=== PATIENT | female | born 1935 | race Caucasian/White ===

== ENCOUNTER 2019-02-20 18:02 | Observation (INO) ==
[2019-02-20] MEDS ORDERED: ASPIRIN PO ONE (18:26)
--- NOTE | 2019-02-20 18:31 | EKG Report ---
Test Performed on : 02/20/2019 6:21:13 PM Test Reason : cp Blood Pressure : / mmHG Vent. Rate : 064 BPM Atrial Rate : 064 BPM P-R Int : 144 ms QRS Dur : 076 ms QT Int : 396 ms P-R-T Axes : 003 007 052 degrees QTc Int : 408 ms Normal sinus rhythm. Low voltage QRS Borderline ECG When compared with ECG of 02-MAY-2017 21:38, No significant change was found Confirmed by Rigo Zafar MD ([id number]), video effects editor Nicol Alatorre ([id number]) on 02/24/2019 1:55:26 PM
[2019-02-20 19:05] LABS: BASO# 0.09 X1000 (0.0-0.2); BASO% 0.6 % (0.0-0.8); EOS# 0.04 X1000 (0.0-0.7); EOS% 0.3 % (0.0-10.0); HEMATOCRIT 36.9 % (37.0-47.0); HEMOGLOBIN 12.8 g/dL (12.0-16.0); IMM GRAN% 5.1 % (0.0-0.5); LYMPH# 3.23 X1000 (1.2-3.4); LYMPH% 20.4 % (20.5-51.1); MCH 29.2 PG (27-31); MCHC 34.7 g/dL (33-37); MCV 84.1 FL (81-99); MONO# 5.89 X1000 (0.11-0.59); MONO% 37.3 % (1.7-9.3); MPV 13.1 FL (7.4-10.4); NEUT# 5.75 X1000 (1.4-6.5); NEUT% 36.3 % (42.2-75.2); PLT 279 X1000 (130-400); RBC 4.39 XMIL (4.2-5.4); RDW 18.5 % (11.5-14.5)
[2019-02-20 19:13] LABS: AGAP 12; ALBUMIN 4.7 g/dL (3.5-5.0); ALKALINE PHOSPHATASE 53 U/L (32-104); BUN 14 mg/dL (8-22); CALCIUM 9.2 mg/dL (8.8-10.2); CHLORIDE 98 mmol/L (98-107); CK PROFILE 19 U/L (24-173); COSMO 275; CREATININE 0.7 mg/dL (0.5-0.9); ESTIMATED GFR > 60; GLUCOSE 106 mg/dL (70-104); GOT 20 U/L (10-30); GPT 9 U/L (10-36); POTASSIUM 4.5 mmol/L (3.5-5.1); SODIUM 137 mmol/L (136-145); TCO2 27 mmol/L (25-35)
[2019-02-20 19:20] LABS: BANDS 4 % (0-1); LYMPHS 27 % (21-51); MONO 33 % (1-9); MYELOCYTES 2 %; SEGS 34 % (42-75)
--- NOTE | 2019-02-20 19:20 | ED EKG INTERP ---
This chart was entered by Olamide Rios Scribe, acting as scribe for Leta Sanchez MD. EKG Interpretation - EKG Time of EKG reading by physician:: 18:21 EKG Read and Signed by:: Leta Sanchez EKG Interpretation (*Must complete 3 of following elements*): Normal (Borderline) Rate: 64 Rhythm: NSR [place]: normal QRS: other (low voltage QRS) [place] Interval: normal ST Wave: normal Attestation - Physician/ WOLFGANG Attestation Patient care was provided by Advanced Practice Provider:: Yes Advanced Practice Provider documentation review:: The Mid-level provider documentation, treatment plan and medical decision making was reviewed by the physician who agrees with all treatment and medical decision making by the MLP. The physician spent face to face time with patient:: Yes Advanced Practice Provider documentation review:: Supervising physician onsite and consulted in the evaluation and care of this patient. The physician did have a face to face encounter with the patient. This chart was documented by the indicated scribe, (Olamide Rios Scribe) and accurately reflects the services I performed and decisions made by me, Leta Sanchez MD, as attested by the provider's signature.
[2019-02-20 19:22] LABS: INR 1.07; PROTIME 14.4 Seconds (11.0-16.0)
--- NOTE | 2019-02-20 19:29 | Diag Imaging Result Doc PS360 ---
EXAM: CHEST-2 VIEWS 02/20/2019 HISTORY: cp TECHNIQUE: PA and lateral chest COMMENT: There is increased interstitial markings which may be indicative of fibrosis as there has been no significant change since 11/11/2016. The heart size and pulmonary vascularity are within normal limits. IMPRESSION: Stable chest. Electronically signed by Sami Franklin 02/20/2019 7:27 PM
--- NOTE | 2019-02-20 20:01 | PROVIDER DOCUMENTATION ---
HPI-General Adult - General Chief Complaint: Dizziness Stated Complaint: CHEST PAIN / SOB Time Seen by Provider: 02/20/19 19:44 Source: patient Allergies/Adverse Reactions: Patient Allergies Allergy/AdvReac Type Severity Reaction Status Date / Time cephalexin monohydrate * Allergy Unknown Verified 05/10/18 18:23 [From Keflex] codeine Allergy Unknown Verified 05/10/18 18:23 cyclobenzaprine HCl * Allergy Unknown Verified 05/10/18 18:23 [From Flexeril] divalproex sodium Allergy Unknown Verified 05/10/18 18:23 [From Depakote] estrogens, conjugated Allergy Unknown Verified 05/10/18 18:23 [From Premarin] meperidine HCl * Allergy Unknown Verified 05/10/18 18:23 [From Demerol] naproxen Allergy Unknown Verified 05/10/18 18:23 pentazocine lactate * Allergy Unknown Verified 05/10/18 18:23 [From Talwin] procaine HCl * Allergy Unknown Verified 05/10/18 18:23 [From Novocain] propoxyphene napsylate * Allergy Unknown Verified 05/10/18 18:23 [From Darvocet-N] Sulfa (Sulfonamide Allergy Unknown Verified 05/10/18 18:23 Antibiotics) trazodone Allergy Unknown Verified 05/10/18 18:23 Home Medications: Home Medication List Medication Instructions Recorded Confirmed Last Taken Type Timolol 0.5% Oph Solution 1 drop BOTH EYES DAILY 06/02/16 05/02/17 Unknown History [Timoptic 0.5% Oph Solution] Ascorbic Acid [Vitamin C] 1,000 mg PO DAILY 05/02/17 05/02/17 05/02/17 History Biotin 1,000 mg PO DAILY 05/02/17 05/02/17 05/02/17 History Furosemide 20 mg PO DAILY 05/02/17 05/02/17 05/02/17 History Meclizine HCl [Antivert] 25 mg PO DAILY 05/02/17 05/02/17 05/02/17 History Meloxicam 15 mg PO DAILY 05/02/17 05/02/17 05/02/17 History Pravastatin Sodium 10 mg PO DAILY 05/02/17 05/02/17 05/02/17 History Timolol 0.5% Oph Solution 6.8 mg BOTH EYES 05/02/17 05/02/17 History [Timoptic 0.5% Oph Solution] Vitamin E 400 units PO DAILY 05/02/17 05/02/17 05/02/17 History - History of Present Illness -Gen Adult Nature of Presenting Problems: Patient is a 83 year old white female with history of recurrent vertigo, s yncope, who presents for evaluation of syncopal episode yesterday and associated dizziness when standing. patient lives alone and has difficulty ambulating for many months due to poor balance. Followed by Dr. Chauhan in [place]. patient also reports intermittent chest discomfort for many months w hich is now gone. Here with her daughter from [facility] who wants her checked out before she takes her mother to [place]. patient is currently asymptomatic except for intermittent dizziness. Review of Systems - Adult - REVIEW OF SYSTEMS - ADULT Constitutional: denies: chills, fever Eyes: reports: no symptoms reported Ears, Nose, Mouth & Throat: reports: see HPI Cardiovascular: reports: chest pain (intermittent, now gone) Respiratory: denies: shortness of breath Gastrointestinal: denies: abdominal pain, nausea, vomiting Genitourinary: denies: dysuria Musculoskeletal: reports: no symptoms reported Integumentary: denies: rash Neurological: reports: headache/migraines (occipital headache due to fall yesterday) Endocrine: reports: no symptoms reported Hematologic/Lymphatic: reports: no symptoms reported Allergic/Immunologic: reports: no symptoms reported All Other Systems: Reviewed and Negative Past History - Adult - PAST MEDICAL HISTORY-ADULT Review of Records: reports: Old Records Reviewed, Nursing Assessment Review, Medications Reviewed, Social history reviewed & non-contributory. Major Childhood Illnesses: reports: denies history Respiratory: reports: asthma - PRIOR SURGERIES/PROCEDURES Surgical/Procedure History: reports: , other (bladder tack ) - IMMUNIZATION STATUS Childhood Immunizations: See Nurse Assessment Flu Vaccine: See Nurse Assessment Physical Exam-General - CONSTITUTIONAL General Appearance: alert, no apparent distress, other (nondiaphoretic) - EYES Eyes: PERRL/EOMI, other (notable horizontal nystagmus) - HEAD, EARS, NOSE, MOUTH & THROAT HENMT: normocephalic/atraumatic, moist mucous membranes - NECK Neck: non-tender, full range of motion, supple - RESPIRATORY Respiratory: lungs clear - CARDIOVASCULAR Cardiovascular: regular rate, rhythm - GASTROINTESTINAL (ABDOMEN) Abdominal Exam: normal bowel sounds, non tender, soft - LYMPHATIC Lymphatic: no adenopathy - MUSCULOSKELETAL Back Exam: normal inspection, no CVA tenderness Extremity: normal range of motion, non-tender Peripheral Pulses: radial (R): 2+, radial (L): 2+ - SKIN Integumentary: normal color, normal turgor, warm/dry - NEUROLOGIC Neurologic: grossly normal, no motor/sensory deficits - PSYCHIATRIC Psych/Mental Status: anxious Progress - PLAN OF CARE/RESULTS Progress/Plan/Lab Results: Vital Signs - 8 hr 02/20/19 18:06 Temperature 98.4 F Pulse Rate 64 Respiratory Rate 18 Blood Pressure 110/63 O2 Sat by Pulse Oximetry 97 Laboratory Results - last 24 hr 02/20/19 02/20/19 02/20/19 18:35 18:35 18:35 WBC 15.80 H RBC 4.39 Hgb 12.8 Hct 36.9 L MCV 84.1 MCH 29.2 MCHC 34.7 RDW Std Deviation 18.5 H Plt Count 279 MPV 13.1 H Immature Gran % (Auto) 5.1 H Neut % (Auto) 36.3 L Lymph % (Auto) 20.4 L Wallace % (Auto) 37.3 H Eos % (Auto) 0.3 Baso % (Auto) 0.6 Immature Gran # (Auto) 0.80 H Neut # (Auto) 5.75 Lymph # (Auto) 3.23 Wallace # (Auto) 5.89 H Eos # (Auto) 0.04 Baso # (Auto) 0.09 Segmented Neutrophils 34 L Band Neutrophils 4 H Lymphocytes 27 Monocytes 33 H Myelocytes 2 Pathologist Review PT INR PTT (Actin FS) Sodium 137 Potassium 4.5 Chloride 98 Carbon Dioxide 27 Anion Gap 12 BUN 14 Creatinine 0.7 Estimated GFR/1.73 m2 > 60 BUN/Creatinine Ratio 20 Glucose 106 H Calculated Osmolality 275 Calcium 9.2 Total Bilirubin 0.70 AST 20 ALT 9 L Alkaline Phosphatase 53 Creatine Kinase 19 L Troponin T Liv-T-Vtocyvdrzjv Pept 281 Total Protein 7.0 Albumin 4.7 Globulin 2.0 Albumin/Globulin Ratio 2.0 02/20/19 02/20/19 18:35 18:35 WBC RBC Hgb Hct MCV MCH MCHC RDW Std Deviation Plt Count MPV Immature Gran % (Auto) Neut % (Auto) Lymph % (Auto) Wallace % (Auto) Eos % (Auto) Baso % (Auto) Immature Gran # (Auto) Neut # (Auto) Lymph # (Auto) Wallace # (Auto) Eos # (Auto) Baso # (Auto) Segmented Neutrophils Band Neutrophils Lymphocytes Monocytes Myelocytes Pathologist Review PT 14.4 INR 1.07 PTT (Actin FS) 31.0 Sodium Potassium Chloride Carbon Dioxide Anion Gap BUN Creatinine Estimated GFR/1.73 m2 BUN/Creatinine Ratio Glucose Calculated Osmolality Calcium Total Bilirubin AST ALT Alkaline Phosphatase Creatine Kinase Troponin T < 0.010 Siw-V-Clsaomfoses Pept Total Protein Albumin Globulin Albumin/Globulin Ratio Orders Category Date Time Status Cardiac Monitoring DIRECTED Care 02/20/19 18:26 Active Orthostatic Vital Signs NOW Care 02/20/19 19:59 Ordered Oxygen Therapy- ED Nursing DIRECTED Care 02/20/19 18:26 Active Saline Loc NOW Care 02/20/19 18:26 Active CHEST-2 VIEWS [RAD] Stat Exams 02/20/19 18:[address] HEAD W/O CONTRAST [CT] Stat Exams 02/20/19 19:58 Ordered CBC WITH ELECTRONIC DIFF [HEME] Stat Lab 02/20/19 18:35 Completed CK PROFILE [SP CHEM] Stat Lab 02/20/19 18:35 Completed COMPREHENSIVE METABOLIC PANEL [CHEM] Stat Lab 02/20/19 18:35 Completed PRO B-NATRIURETIC PEPTIDE Stat Lab 02/20/19 18:35 Completed PROTIME WITH INR [COAG] Stat Lab 02/20/19 18:35 Completed PTT [COAG] Stat Lab 02/20/19 18:35 Completed TROPONIN T Stat Lab 02/20/19 18:35 Completed Aspirin Med 02/20/19 18:26 Discontinued 325 mg PO NOW ONE CP/SOB/Palp >45 yrs of Age Stat Oth 02/20/19 18:26 Ordered EKG [EKG] Stat Ther 02/20/19 18:26 Draft Result Diagrams: 02/20/19 18:35 02/20/19 18:35 - EKG 1 Time of EKG reading by physician:: 18:22 EKG Read and Signed by:: Leta Sanchez Rate: 64 Rhythm: NSR [place]: normal QRS: other (low voltage QRS) - CONSULTS/PCP/HOSPITALIST Notification #1 *Consult/PCP/Hospitalist*: Dr. Oglesby, hospitalist Time Discussed: 20:55 Consult Disposition: Admit Departure - Departure Date of Disposition Decision: 02/20/19 Time of Disposition Decision: 21:03 DIAGNOSIS: Cerebrovascular disease, Vertigo Chest pain Qualifiers: Chest pain type: unspecified Qualified Code(s): R07.9 - Chest pain, unspecified Disposition: ADMITTED INPATIENT 09 Certified Medical Emergency: Emergent Condition: Stable Referrals and Follow-Ups: To Chauhan MD [Primary Care Provider] - - Critical Care Note This patient required my direct & personal management of CC.: No Attestation - Physician/ WOLFGANG Attestation Patient care was provided by Advanced Practice Provider:: No The physician spent face to face time with patient:: Yes Advanced Practice Provider documentation review:: Supervising physician onsite and consulted in the evaluation and care of this patient. The physician did have a face to face encounter with the patient.
[2019-02-20] MEDS ORDERED: ANTIVERT PO ONE (20:09)
--- NOTE | 2019-02-20 20:21 | Diag Imaging Result Doc PS360 ---
EXAM: CT HEAD W/O CONTRAST 02/20/2019 HISTORY: head injury,dizziness TECHNIQUE: This exam was performed using automated exposure control, adjustment of mA or kV according to patient size, and/or use of iterative reconstruction technique. COMMENT: There are patchy lucencies throughout the white matter of both hemispheres. The visualized paranasal sinuses are clear. The calvarium is intact. There is no evidence of mass effect bleed or abnormal extra-axial fluid collection. Compared to 05/02/2017 the white matter changes appear to be worse. This is particularly true in the subcortical white matter. IMPRESSION: Worsened chronic microvascular white matter changes. No evidence of acute intracranial disease. Electronically signed by Sami Franklin 02/20/2019 8:19 PM
[2019-02-20] MEDS ORDERED: ZOFRAN IV PRN (21:04)
[2019-02-20] MEDS: ANTIVERT PO SCH (22:26)
[2019-02-21 00:16] LABS: BILIRUBIN URINE NEGATIVE (NEGATIVE); BLOOD URINE NEGATIVE (NEGATIVE); CLARITY CLEAR (CLEAR); COLOR YELLOW; GLUCOSE URINE NEGATIVE (NEGATIVE); KETONE URINE NEGATIVE (NEGATIVE); LEUKOCYTES URINE NEGATIVE (NEGATIVE); NITRITE URINE NEGATIVE (NEGATIVE); PROTEIN URINE NEGATIVE (NEGATIVE); SP GRAVITY URINE 1.005; UROBILINOGEN URINE NORMAL
[2019-02-21 00:18] LABS: URINE BACTERIA 2+ /HFP; URINE EPITHELIAL CELLS <10 /HPF (<10); URINE SOURCE CLEAN CATCH; URINE WBC <10 /HPF (<10)
[2019-02-21] MEDS: ANTIVERT PO SCH ×2 (05:00→12:24)
[2019-02-21] MEDS ORDERED: VALIUM PO PRN (06:39)
[2019-02-21] MEDS ORDERED: ANTIVERT PO PRN (06:39)
[2019-02-21] MEDS ORDERED: VITAMIN C PO SCH (09:00)
[2019-02-21] MEDS ORDERED: TIMOPTIC 0.5% OPH SOLUTION BOTH EYES SCH (09:00)
[2019-02-21 10:28] LABS: TSH 1.68 uIUmL (0.27-4.20)
--- NOTE | 2019-02-21 11:20 | HISTORY AND PHYSICAL ---
PRIMARY CARE PHYSICIAN: To Chauhan MD CHIEF COMPLAINT: Dizziness and falls. HISTORY OF PRESENT ILLNESS: Ms. Brewster is an 83-year-old female with a history of asthma and vertigo, who presents with dizziness and falls. Interestingly, her last reported fall was 10 days prior to admission. However, she has had a little bit more dizziness than normal, and her daughter, who is not at the bedside currently, wanted her to be evaluated in the ER. Ms. Brewster herself is an extremely poor historian and clearly has some aspects of dementia. The details of coming to the hospital are essentially that her daughter was concerned about her falling and dizziness and wanted her evaluated. She denies any current dizziness, no loss of vision. No chest pain. No shortness of breath. No abdominal pain, nausea, vomiting or diarrhea. No dysuria, lower extremity edema, orthopnea, PND, weight gain or weight loss. In the ER, she had a CT of the head done which showed atrophy and chronic white matter changes. Chest x-ray showed possible fibrosis. EKG showed sinus rhythm with low voltage. Her laboratory data did show a mild elevation in her WBCs at 15.8. Her chemistry is unremarkable, and her cardiac enzymes have all been negative over 4 sets. Urinalysis shows 2+ bacteria but everything else is normal. The patient herself denies any dysuria. She is going to be admitted for observation and likely discharged later today. PAST MEDICAL HISTORY: 1. Vertigo, on Antivert and Valium. 2. Asthma and seasonal allergies. PAST SURGICAL HISTORY: She has had a section. SOCIAL HISTORY: She denies tobacco, alcohol or drug use. She lives with her daughter who is currently visiting from [place]. Apparently Ms. Brewster will be moving back down to [place] in the near future to be with her daughter. FAMILY HISTORY: Noncontributory. REVIEW OF SYSTEMS: Limited 10-point review of systems was obtained and found to be negative with the exception of the HPI. ALLERGIES: Keflex, codeine, Flexeril, Depakote, Premarin, Demerol, naproxen, Talwin, novocaine, Darvocet, sulfonamides and trazodone. HOME MEDICATIONS: Vitamin C 1000 mg p.o. daily, Valium 5 mg p.o. every 8 hours as needed, meclizine 12.5 mg p.o. every 8 hours as needed, Timolol 1 drop to both eyes daily. PHYSICAL EXAMINATION: VITAL SIGNS: Blood pressure is 113/45, heart rate is 63, respiratory rate is 18, O2 saturation is 96% on room air, temperature is 98.4. GENERAL: This is an elderly 83-year-old female lying in the hospital bed in no acute distress. NEUROLOGICAL: The patient is awake and alert; however, she is quite disoriented. She is unable to give an accurate date or place or time. She is able to state her name. She does not know the name of our current president. She follows commands without focal deficits. HEENT: Head is atraumatic and normocephalic. Pupils are equal, round and reactive to light. Oral mucosa is moist. NECK: Trachea is midline. There is no JVD. CHEST: Clear to auscultation bilaterally. CARDIOVASCULAR: Regular rate and rhythm. S1 and S2 noted. There is a 1/6 systolic ejection murmur noted. GASTROINTESTINAL: Soft and nondistended. Bowel sounds are active. EXTREMITIES: No edema, clubbing or cyanosis. Pulses are 1+ bilaterally. DIAGNOSTIC DATA: Head CT shows chronic changes, nothing acute. Chest x-ray shows mild fibrosis, but no acute abnormality. EKG sinus rhythm, low voltage. WBC is 15.8, hemoglobin 12.8, hematocrit 36.9, platelet count 279. INR is 1.07. D-dimer is 0.44. Sodium is 137, potassium 4.5, chloride 98, CO2 is 27, anion gap 12, BUN is 14, creatinine 0.7, glucose 106. LFTs negative. Troponin negative x4 sets. ProBNP is 281. Albumin 4.7. UA with 2+ bacteria but nothing else abnormal. ASSESSMENT AND PLAN: 1. Vertigo with unsteadiness and frequent falls. Thus far, her workup has been negative. She has had full evaluations in the past with an echocardiogram, carotid Doppler, all of which did not show anything acute. Her cardiac enzymes have been negative over 4 sets, and her vitals are stable. She has also had orthostatic vital signs done which were also negative. Her D-dimer is negative, and she has no complaints at this time. As such, she will be stable for discharge home and will have her follow up with her PCP. 2. History of asthma. Stable. No respiratory complaints at this time. 3. Further recommendations to follow. Dictated by JOSLYN Sheets for Leonel Oglesby MD cc: JOSLYN Sheets MD
[2019-02-21 11:46] VITALS: BP 115/57
--- NOTE | 2019-02-21 19:38 | HISTORY AND PHYSICAL ---
ADDENDUM: The patient was seen and examined by myself. Full note dictated and discussed with nurse practitioner. The patient presented to the hospital with recurrent vertigo-type symptoms. She will be admitted to the hospital and will follow. Please see full dictation. cc: Leonel Oglesby MD
--- NOTE | 2019-02-25 19:05 | DISCHARGE SUMMARY ---
ADMISSION DATE: 02/20/2019 DISCHARGE DATE: 02/21/2019 DISCHARGE DIAGNOSES: 1. Vertigo resolved. 2. Asthma. 3. Others. CONSULTATIONS: None. PROCEDURES: None. BRIEF HOSPITAL COURSE: The patient is an 83-year-old female who presented to the ER with dizziness and falling. Thankfully, after IV fluids, her symptoms resolved. On discharge, she is awake, alert. She is in no distress. DISPOSITION: Patient will be discharged home. No changes were made in her home medications. She will follow up outpatient with primary care of her choice. TIME SPENT: Greater than 30 minutes was spent in total care. cc: Leonel Oglesby MD
== END 2019-02-21 14:20 | disposition home or self-care (01) ==
LOC: P.MEDSURG 18:02 → P.ED 18:02 → P.MEDSURG 02-21 05:26
PROVIDERS: ATTEND Family Medicine
CPT/HCPCS: 36415; 70450; 71020; 71046; 80053; 81001; 82550; 82607; 82746; 83880; 84443; 84484; 85025; 85379; 85610; 85730; 87088; 93005; 94761; 99285; A9270